=== PATIENT | female | born 1965 | race American Indian/Alaskan Native ===

== ENCOUNTER 2022-02-26 10:24 | Emergency (ER) | payer OTHER ==
[2022-02-26] MEDS ORDERED: Acetaminophen/HYDROcodone 325-10 MG Tab PO ONE (11:11)
[2022-02-26] MEDS ORDERED: Ondansetron 4 MG Tab.DIS PO ONE (11:12)
[2022-02-26] MEDS ORDERED: Acetaminophen/oxyCODONE 325-10 MG Tab PO ONE (11:33)
== END 2022-02-26 15:24 | disposition home or self-care (01) ==
LOC: MW.ED 10:24
DX: S00.03XA Contusion of scalp, initial encounter (principal); S30.0XXA Contusion of lower back and pelvis, initial encounter; W01.198A Fall on same level from slipping, tripping and stumbling with subsequent striking against other object, initial encounter
CPT/HCPCS: 70450; 72220; 99284; A9270